=== PATIENT | female | born 1975 | race African-American/Black ===

== ENCOUNTER 2022-08-17 07:39 | Emergency (ER) | payer MEDICARE, MEDICAID ==
[~2022-08-17] VITALS: Ht 160 cm; Wt 84.0 kg
[~2022-08-17 07:39] MED LIST: INSULIN
[2022-08-17 09:35] LABS: HEMATOCRIT. 37.9 % (36.0-48.0); HEMOGLOBIN. 12.1 g/dL (12.0-16.0); MEAN CORPUSCULAR HEMOGLOBIN 31.2 pg (28.0-32.0); MEAN CORPUSCULAR VOLUME 97.8 fL (81.0-99.0); MEAN PLATELET VOLUME 7.4 fl (7.4-10.4); PLATELET 227 x1000/uL (130-400); RED BLOOD CELL COUNT 3.88 mill/uL (4.2-5.4); RED CELL DISTRIBUTION WIDTH 17.4 % (11.6-14.6)
[2022-08-17 09:42] LABS: CHLORIDE 97 mEq/L (98-107)
[2022-08-17 10:20] LABS: PLATELET ESTIMATE NORMAL
[2022-08-17 12:19] VITALS: BP 151/72
== END 2022-08-17 12:34 | disposition home or self-care (01) ==
LOC: ER 07:39
DX: E11.649 Type 2 diabetes mellitus with hypoglycemia without coma (principal); Z79.4 Long term (current) use of insulin
CPT/HCPCS: 36415; 80053; 82962; 85025; 99283